=== PATIENT | female | born 1950 | race Caucasian/White ===

== ENCOUNTER 2022-05-07 16:01 | Emergency (ER) | payer OTHER ==
[~2022-05-07] VITALS: Ht 165.1 cm; Wt 66.2 kg
--- NOTE | 2022-05-07 16:10 | NUR ---
BIB [facility],FOUND SITTING IN THE HALLWAY OF HER APARTMENT,CONFUSED PER APT. 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 PLACED ON BED, AWAKE ALERT RESPONDING TO VERBAL STIMULI, COFUSED, R ARM HEMATOMA NOTED, BREATHING EVEN AND UNLABORED.
[2022-05-07] MEDS: IV NS 0.9% 1,000 ML BAG IV ONE (16:50)
--- NOTE | 2022-05-07 17:00 | NUR ---
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
--- NOTE | 2022-05-07 17:23 | NUR ---
PATIENT TAKEN TO CT VIA [facility]
[2022-05-07 17:41] LABS: BASOPHILS % (AUTO) 0.6 % (0.0-2.0); EOSINOPHILS % (AUTO) 1.4 % (0.0-6.0); HEMATOCRIT 26 % (33-45); HEMOGLOBIN 8.7 g/dL (11.5-14.8); LYMPHOCYTES # (AUTO) 1.3 K/uL (0.8-4.8); MEAN CORPUSCULAR HGB CONC 33 g/dl (31.0-36.0); MEAN CORPUSCULAR VOLUME 103 fL (82-100); MONOCYTES # (AUTO) 1.1 K/uL (0.1-1.30); MONOCYTES % (AUTO) 24.9 % (2.0-12.0); NEUTROPHILS # (AUTO) 1.8 K/uL (1.8-8.9); NEUTROPHILS % (AUTO) 42.1 % (43.0-81.0); PLATELET COUNT (AUTO) 108 K/uL (150-450); RED BLOOD CELL COUNT(AUTO) 2.54 MIL/uL (4.0-5.2); WHITE BLOOD COUNT (AUTO) 4.3 K/uL (4.3-11.0)
[2022-05-07 17:56] LABS: SERUM AMMONIA 43 umol/L (11-32)
[2022-05-07 17:59] LABS: CARBON DIOXIDE 24 mmol/L (21-32); CHLORIDE 107 mmol/L (98-107); CREATININE 0.7 mg/dL (0.6-1.3); GLUCOSE 117 mg/dL (74-106); SODIUM SERUM 142 mmol/L (136-145); UREA NITROGEN, BLOOD 8 mg/dL (7-18)
[2022-05-07 18:08] LABS: THYROID STIMULATING HORMONE 0.741 uIU/mL (0.358-3.74)
[2022-05-07 18:11] LABS: ALANINE AMINOTRANSFERASE 54 U/L (12-78); ALBUMIN 2.8 g/dL (3.4-5.0); ALCOHOL, BLOOD 416 mg/dL (0-0); ALKALINE PHOSPHATASE 85 U/L (46-116); ASPARTATE AMINOTRANSFERASE 110 U/L (15-37); BILIRUBIN,DIRECT 0.4 mg/dL (0.0-0.2); BILIRUBIN,TOTAL 0.9 mg/dL (0.2-1.0); TOTAL PROTEIN, SERUM 6.8 g/dL (6.4-8.2)
[2022-05-07 18:16] LABS: ACETAMINOPHEN < 0 ug/ml (10-30)
[2022-05-07] MEDS: POTASSIUM CHLORIDE 20 MEQ TAB.PRT.SR PO ONE (18:30)
[2022-05-07] MEDS ORDERED: POTASSIUM CHLORIDE 20 MEQ TAB.PRT.SR PO ONE (19:28)
--- NOTE | 2022-05-07 20:23 | NUR ---
URINE COLLECTED AND SENT TO LAB. PT KEPT CLEAN AND DRY ADLS DONE
[2022-05-07 21:18] LABS: BILIRUBIN,URINE NEGATIVE (NEGATIVE); COLOR,URINE YELLOW (YELLOW); LEUKOCYTE ESTERASE ,URINE NEGATIVE (NEGATIVE); NITRITE, URINE NEGATIVE (NEGATIVE); PROTEIN,URINE NEGATIVE (NEGATIVE); UGLUCOSE NEGATIVE (NEGATIVE); UROBILINOGEN,URINE 0.2 EU/dL (0.2)
[2022-05-08] VITALS: BP 119/69
--- NOTE | 2022-05-08 03:39 | NUR ---
Patient discharged to home in stable condition. Written and verbal after care instructions given. Patient verbalizes understanding of instruction. pt ambulatory with a steady gait
== END 2022-05-08 04:00 | disposition home or self-care (01) ==
LOC: ER 16:03
DX: S51.811A Laceration without foreign body of right forearm, initial encounter (principal); S20.01XA Contusion of right breast, initial encounter; F10.129 Alcohol abuse with intoxication, unspecified; R40.4 Transient alteration of awareness; Z60.2 Problems related to living alone; X58.XXXA Exposure to other specified factors, initial encounter; Y93.89 Activity, other specified; Y92.89 Other specified places as the place of occurrence of the external cause; Y99.8 Other external cause status; Y90.8 Blood alcohol level of 240 mg/100 ml or more
CPT/HCPCS: 99284; 96360; 71045; 73090; 70450; 82140; 85025; 80048; 80076; 81003; 36415; 84443; 85730; 80143; 80320; 80307; J7030; G0480